=== PATIENT | female | born 2000 | race Caucasian/White ===

== ENCOUNTER 2021-03-09 17:06 | Emergency (ER) | payer OTHER ==
[2021-03-09 19:42] LABS: BILIRUBIN NEGATIVE (NEGATIVE); BLOOD 2+ Ery/uL (NEGATIVE); CLARITY CLEAR (CLEAR); COLOR YELLOW (YELLOW); GLUCOSE (U) NORMAL (NORMAL); LEUKOCYTES NEGATIVE Leu/uL (NEGATIVE); NITRITE NEGATIVE (NEGATIVE); PROTEIN NEGATIVE (NEGATIVE); SPECIFIC GRAVITY >=1.030 (1.001-1.030); UROBILINOGEN 0.2 mg/dL (0.2-1.0)
[2021-03-09 19:42] LABS: BASOPHIL 0.9 % (0-2); EOSINOPHIL 1.9 % (0-5); HCT 41.2 % (37.0-47.0); HGB 13.8 g/dl (12.5-16.0); LYMPHOCYTE 43.5 % (15-48); MCH 31.6 pg (25.0-31.0); MCHC 33.5 g/dL (32.0-36.0); MCV 94.3 fL (78.0-100.0); MONOCYTE 9.2 % (0-12); MPV 10.7 fL (6.0-9.5); NRBC 0; PLT 168 K/uL (150-400); RBC 4.37 M/uL (4.20-5.40); RDW 12.7 % (11.5-14.0); WBC 4.3 K/uL (4.0-10.5)
[2021-03-09 19:48] LABS: BACTERIA TRACE; URINARY RBC RARE; URINARY WBC RARE
== END 2021-03-09 22:15 | disposition home or self-care (01) ==
LOC: FER 17:06
PROVIDERS: Emergency Medicine
DX: O20.0 Threatened abortion (principal); Z3A.01 Less than 8 weeks gestation of pregnancy
CPT/HCPCS: 36415; 76801; 81001; 84702; 85025

== ENCOUNTER 2021-10-15 11:13 | Inpatient (IN) | payer OTHER ==
[2021-10-15 13:08] LABS: BILIRUBIN NEGATIVE (NEGATIVE); BLOOD NEGATIVE Ery/uL (NEGATIVE); CLARITY CLEAR (CLEAR); COLOR YELLOW (YELLOW); GLUCOSE (U) NORMAL (NORMAL); LEUKOCYTES NEGATIVE Leu/uL (NEGATIVE); NITRITE NEGATIVE (NEGATIVE); PROTEIN NEGATIVE (NEGATIVE); UROBILINOGEN 0.2 mg/dL (0.2-1.0)
[2021-10-15 13:36] LABS: PROTEIN:CREATININE 0.32 RATIO; URINE CREATININE 54.27 mg/dL (29.00-226.00); URINE TOTAL PROTEIN-RANDOM 17.7 mg/dL (<11.9)
[2021-10-15 13:40] LABS: HCT 35.8 % (37.0-47.0); HGB 12.4 g/dl (12.5-16.0); MCH 33.2 pg (25.0-31.0); MCHC 34.6 g/dL (32.0-36.0); MCV 95.7 fL (78.0-100.0); RBC 3.74 M/uL (4.20-5.40); RDW 14.5 % (11.5-14.0); WBC 8.4 K/uL (4.0-10.5)
[2021-10-15 13:52] LABS: ALBUMIN 2.3 g/dL (3.4-5.0); BILIRUBIN - TOTAL 0.4 mg/dL (0.2-1.0); CREATININE 0.67 mg/dL (0.51-0.95); POTASSIUM 3.5 mmol/L (3.5-5.1); TOTAL PROTEIN 6.3 g/dL (6.4-8.2)
[2021-10-18 06:46] LABS: HCT 26.2 % (37.0-47.0); MCH 32.3 pg (25.0-31.0); MCHC 32.8 g/dL (32.0-36.0); MCV 98.5 fL (78.0-100.0); MPV 10.5 fL (6.0-9.5); RBC 2.66 M/uL (4.20-5.40); RDW 14.9 % (11.5-14.0); WBC 7.5 K/uL (4.0-10.5)
[2021-10-18 06:56] LABS: HGB 8.6 g/dl (12.5-16.0)
[2021-10-18] MEDS ORDERED: FEOSOL325 MG PO (13:28)
[2021-10-18] MEDS ORDERED: COLACE100 MG PO (13:28)
[2021-10-18] MEDS ORDERED: KETOROLAC TROME10 MG PO (13:28)
[2021-10-18] MEDS ORDERED: FOLIC ACID1 MG PO (13:28)
[2021-10-18] MEDS ORDERED: PRENATAL FORMU1 EACH PO (13:28)
[2021-10-18] MEDS ORDERED: VITAMIN D325 MC1 PO (13:28)
[2021-10-19 07:17] LABS: BASOPHIL 0.7 % (0-2); EOSINOPHIL 1.7 % (0-5); HCT 26.3 % (37.0-47.0); HGB 8.8 g/dl (12.5-16.0); LYMPHOCYTE 25.7 % (15-48); MCH 32.8 pg (25.0-31.0); MCHC 33.5 g/dL (32.0-36.0); MCV 98.1 fL (78.0-100.0); MONOCYTE 9.8 % (0-12); MPV 9.7 fL (6.0-9.5); NEUTROPHIL 59.1 % (41-80); NRBC 0; PLT 107 K/uL (150-400); RBC 2.68 M/uL (4.20-5.40); RDW 14.6 % (11.5-14.0)
[2021-10-19] MEDS ORDERED: PERCOCET 5-3251 EACH PO (17:49)
== END 2021-10-19 19:30 | disposition home or self-care (01) | DRG 786 ==
LOC: FOB 11:13 → FOD 11:13 → FOB 15:34
PROVIDERS: Specialist; ADMIT Obstetrics & Gynecology
PROC: 8E0ZXY6 Isolation (ICD-10-PCS; 2021-10-15)
PROC: 10D00Z1 Extraction of Products of Conception, Low, Open Approach (ICD-10-PCS; principal; 2021-10-17 05:00)
DX: O62.1 Secondary uterine inertia (principal); U07.1 COVID-19; O98.52 Other viral diseases complicating childbirth; D62 Acute posthemorrhagic anemia; O99.12 Other diseases of the blood and blood-forming organs and certain disorders involving the immune mechanism complicating childbirth; O99.354 Diseases of the nervous system complicating childbirth; O14.94 Unspecified pre-eclampsia, complicating childbirth; Z37.0 Single live birth; Z3A.37 37 weeks gestation of pregnancy; O99.02 Anemia complicating childbirth; D69.6 Thrombocytopenia, unspecified; O99.52 Diseases of the respiratory system complicating childbirth; J45.909 Unspecified asthma, uncomplicated; O99.824 Streptococcus B carrier state complicating childbirth; O69.81X0 Labor and delivery complicated by cord around neck, without compression, not applicable or unspecified; G43.909 Migraine, unspecified, not intractable, without status migrainosus; O71.82 Other specified trauma to perineum and vulva; Z87.442 Personal history of urinary calculi
CPT/HCPCS: 36415; 76818; 80053; 81003; 82570; 83615; 84156; 85025; 86850; 86900; 86901; 87070; 90686; 94010; J0456; J0595; J0690; J1885; J2001; J2250; J2274; J2370; J2405; J2540; J2590; J7050; J7120; U0002